=== PATIENT | male | born 1935 | race Caucasian/White ===

== ENCOUNTER 2022-02-07 08:46 | Inpatient (IN) ==
[2022-02-07] MEDS ORDERED: ONDANSETRON 4 MG/2 ML VIAL IV PRN ×2 (09:38→14:40)
[2022-02-07] MEDS ORDERED: METOPROLOL TARTRATE 5 MG/5 ML VIAL IV PRN (09:38)
[2022-02-07] MEDS ORDERED: POLYETHYLENE GLYCOL 3350 17 GM PACKET PO PRN (09:38)
[2022-02-07] MEDS ORDERED: SENNOSIDES 1 TABLET PO PRN (09:38)
[2022-02-07] MEDS ORDERED: IPRATROPIUM/ALBUTEROL 3 ML AMPUL.NEB NEB PRN ×2 (09:38→14:40)
[2022-02-07] MEDS ORDERED: MAGNESIUM SULFATE 2 GM/50 ML BAG IV PRN (09:38)
[2022-02-07] MEDS ORDERED: ACETAMINOPHEN 325 MG TABLET PO PRN (09:38)
[2022-02-07] MEDS ORDERED: POTASSIUM CHLORIDE 40 MEQ in DEXTROSE 5% IN WATER 500 ML IV PRN (09:38)
[2022-02-07] MEDS ORDERED: POTASSIUM CHLORIDE 20 MEQ TABLET PO PRN (09:38)
--- NOTE | 2022-02-07 09:38 | Internal Med History&Physical ---
HPI History of Present Illness Patient information: Note initiated : 02/07/22 at 9:24 am Service Date, if different from initiated Date: [] Patient: Jerome Trotter 86 y/o M admitted on for OBSTRUCTING KIDNEY STONE. Chief Complaint: [] History of present illness: Mr. Trotter is a 86 year old M Presents to [facility] for weakness fever and patient recently had suprapubic catheter placed on January 22. He was also have altered mental status. He is not COVID vaccinated although he was checked in the ED and found to be positive on a screen. Also complained of wet cough for 2 weeks. Patient is a poor historian and most of the history obtained from the chart. He only recalls waking up in the hospital. CXR at outside facility reported as unremarkable except for minimal left effusion Patient was given Zosyn and vancomycin in the ED and 1500 mL of IV fluids. Patient carries a history of atrial fibrillation depression GERD hypertension hypothyroidism obstructive sleep apnea Parkinson's.. He was found to have an obstructing stone on the right felt to be the cause of the likely sepsis. Dr. Sharma was contacted who accepted the patient. Right hydronephrosis. Leukocytosis of 15 mildly low potassium. BUN 29, and creatinine 1.4. Procalcitonin 0.6. Case discussed with the patient's urologist in [place] said not to change the suprapubic catheter for at least 5 weeks from placement date which would put it at February 28. Patient was incidentally found to have COVID on upon testing the ED but did not have any symptoms. Review of Systems: Pertinent positives as above. Denies headache/chills/nausea/vomiting/chest or abdominal pain/cough/dyspnea/diarrhea. Remaining 10 point review of system reviewed negative PFSH PFSH All Active Problems Renal stone (Acute) Hydronephrosis, right (Acute) Suprapubic catheter (Acute) Sepsis (Acute) COVID-19 (Acute) Parkinson disease (Acute) Anticoagulated (Acute) MEDS/ALLERGIES Home Medications and Allergies Home Medications Medication Instructions Recorded Confirmed Type carbidopa 25 mg-levodopa 100 1 tab PO QID 02/07/22 02/07/22 History mg-entacapone 200 mg tablet fludrocortisone 0.1 mg tablet 0.1 mg PO DAILY 02/07/22 02/07/22 History Allergies Allergy/AdvReac Type Severity Reaction Status Date / Time gluten Allergy Verified 02/07/22 11:24 EXAM Constitutional Exam: General: Awake, No acute Distress Eyes/N/T: EOMI, PERRL, Head/Neck: neck supple, normocephalic atraumatic CV: RRR, No murmurs, normal s1/s2 Pulm: rhonchi b/l, no wheezing Abd: soft, nontender, +BS x4, suprapubic catheter Ext: no clubbing/cyanosis, mild b/l LE edema Neuro: no focal deficits, moves all extremities, CN 2-12 grossly intact, symmetrical strength b/l upper/lower, sensations intact b/l upper/lower Skin: warm/dry A/P Narrative A/P Narrative: A: *R hydronephrosis from obstructing UPJ stone: *Sepsis: 2/2 above *DEBO, ?CKD: 2/2 above *Encephalopathy, metabolic: 2/2 above *Suprapubic catheter placed January 22 [place]: *incidental Covid (+): asymptomatic *Parkinson disease: *Chronic Afib: on eliquis *GERD: *?addrenal insufficiency: On Florinef at home, clarify P: -Urology per Dr. Sharma -IV Abx, pending / - -monitor for covid symptoms -cont parkinson's meds -Home medication reconciliation -pt/ot -ppx: SCD (hold home eliquis for urological procedure) / home ppi Time Spent With Patient Time: Total time spent is greater than 50% in coordination of care (as documented) at patient's floor/unit and/or counseling patient: Total time spent with greater than 50% in coordination of care (as documented) at patient's floor/unit and/or counseling patient:: 50 - 70 minutes
[2022-02-07] MEDS ORDERED: 0.9 % SODIUM CHLORIDE 1,000 ML IV ONE (09:39)
[2022-02-07] MEDS ORDERED: PIPERACILLIN SODIUM/TAZOBACTAM 3.375 GM in DEXTROSE 5% IN WATER 50 ML IV SCH (09:45)
--- NOTE | 2022-02-07 12:43 | Urology Consult Note ---
HPI Data of Consult Patient: new to practice Consult date: 02/07/22 Requesting physician: Pavel Matta Consult Narrative Patient Information: Note initiated : 02/07/22 at 12:37 pm Service Date, if different from initiated Date: [] Patient: Jerome Trotter 86 y/o M admitted on 02/07/22 for OBSTRUCTING KIDNEY STONE. Chief Complaint: The patient is an 86-year-old male who was transferred to our hospital from [facility] was positive for COVID and is reported to have urosepsis with a 1 cm right ureteropelvic junction stone with obstruction he had a suprapubic catheter placed approximately 2 weeks ago by his urologist in [place]. It is reported that the urine was purulent today and the patient was not doing well with a white count of 15. The patient's ER doctor called to request transfer to this hospital. I said I would not accept the patient on my service but that if the hospitalist was willing to accept I can try placing a ureteral stent. I also explained to the ER doctor that if we were unable to get a ureteral stent we do not have interventional radiology services available and this is a problem. The ER doctor wished to transfer anyway. I have now had a chance to review the medical records from [place] and these indicate that the patient's urologist also indicated that the patient should be transferred to a center with interventional radiology available. Patient is now here and appears to be alert and oriented. He does not appear to be in significant distress at this time. White blood cell count this morning was 11.3. He received Eliquis yesterday. He has been n.p.o. since February 05. He reports that he is hungry. Chief complaint: Urosepsis with obstructing right renal pelvis stone, COVID- positive Reason for consult: Urosepsis with obstructing right renal stone cc:: CC: Pavel Matta Review of Systems All systems: reviewed and no additional remarkable complaints except as stated Constitutional Constitutional: Present as per HPI, chills, fever(s), lethargy and weakness Genitourinary Genitourinary: as per HPI, flank pain and other (Suprapubic catheter in place draining clear yellow urine) Musculoskeletal Additional comments: Symptoms consistent with Parkinson's Neurological Neurological: Present as per HPI and other (Symptoms consistent with Parkinson's) Psychiatric Psychiatric: Present as per HPI PFSH PFSH All Active Problems Anticoagulated (Acute) Parkinson disease (Acute) COVID-19 (Acute) Sepsis (Acute) Suprapubic catheter (Acute) Hydronephrosis, right (Acute) Renal stone (Acute) MEDS/ALLERGIES Home Medications and Allergies Home Medications Medication Instructions Recorded Confirmed Type carbidopa 25 mg-levodopa 100 1 tab PO QID 02/07/22 02/07/22 History mg-entacapone 200 mg tablet fludrocortisone 0.1 mg tablet 0.1 mg PO DAILY 02/07/22 02/07/22 History Allergies Allergy/AdvReac Type Severity Reaction Status Date / Time gluten Allergy Verified 02/07/22 11:24 Physical Examination General physical appearance General physical exam: well developed, well nourished and chronically ill ENT ENT exam: decreased hearing Head Head exam IM: Present atraumatic, normal inspection and normocephalic Cardiovascular Cardiovascular exam IM: Present normal rate and rhythm Respiratory Respiratory exam: normal expansion and normal respiratory effort Abdomen Abdomen: Present soft and non tender Genitourinary Genitourinary (Male): Present other (Suprapubic catheter in place) Integumentary Integumentary: Present other (Early decubitus ulcers documented by nursing.) Psychiatric Psychiatric: Present oriented to time, oriented to person and oriented to place Results Labs Labs: I have reviewed the patient's outside labs. Imaging CT scan - abdomen: report reviewed and image reviewed CT scan - pelvis: report reviewed and image reviewed Additional studies: I have reviewed the patient's pertinent outside medical records from [place] A/P Assessment and plan (1) Renal stone: Status: Acute (2) Hydronephrosis, right: Status: Acute (3) Suprapubic catheter: Status: Acute (4) Sepsis: Status: Acute (5) COVID-19: Status: Acute (6) Parkinson disease: Status: Acute (7) Anticoagulated: Status: Acute Plan Jerome is an 86-year-old male who was transferred here emergently from [place] due to an obstructing right ureteropelvic junction stone with right hydronephrosis and flank pain. He was reported to be Uracid. On arrival, however, records indicate that his white blood cell count today was 11.36. I have personally reviewed his films which do show what appears to be a right ureteropelvic junction stone with partial obstruction and mild to moderate right hydronephrosis. His suprapubic catheter is draining clear kayce urine. I explained to the ER doctor who wished to transfer the patient the patient would be better off going to a center with both urology and interventional radiology because if we cannot place a ureteral stent in a retrograde fashion the patient will need to have a nephrostomy placed. The ER doctor wish to transfer the p atient here anyway. Upon review of transferring note the ER physician also called the patient's urologist in [place] who said the same thing. The patient should have gone to a center with both urology and interventional radiology evidently there was nowhere else to transfer the patient so we agreed to accept the patient to attempt to place a retrograde right ureteral stent. I spoken with the patient. The patient is also COVID-positive. We discussed going to the operating room for cystoscopy, right retrograde pyelogram, and right ureteral stent placement. The suprapubic catheter will not be touched. I explained to the patient that we will not be treating the stone today as we do not treat stones in the presence infection. We will only be placing a stent that he will need to have the stone treated at a later date. He understands that should we be unable to place the ureteral stent today he will need to be transferred to a center with interventional radiology or possibly [place] to [facility] for placement of right nephrostomy tube with transfer back here. Patient's risks of anesthesia are significantly elevated due to his being positive and due to his age. Reports that he said nothing to eat since February 05. The fact that he received anticoagulation yesterday also raises his risks. Risks include bleeding, infection, damage to the urethra into the bladder, p ostoperative urgency and frequency, postoperative hematuria, need for further treatment or surgery, need to treat the stone at a later date, need to remove the stent within 3 months, risks of heart attack, blood clots, stroke, and . As mentioned above there are also significant risks to the anesthesia that he will discuss separately with the anesthesia provider prior to procedure. The patient understands the above risks and he understands that he was transferred here for this procedure to happen emergently. A signed consent form was obtained. We are taking him to the operating room urgently to place a right ureteral stent as above. The patient will then be readmitted to our hospitalist service for further management. Time Spent With Patient Time: Total time spent is greater than 50% in coordination of care (as documented) at patient's floor/unit and/or counseling patient: Total time spent with greater than 50% in coordination of care (as documented) at patient's floor/unit and/or counseling patient:: Greater than 70 minutes
[2022-02-07] MEDS ORDERED: LIDOCAINE 2% URO-JET 10 ML JEL.PF.APP UR ONE (13:03)
[2022-02-07] MEDS ORDERED: IOVERSOL 20 ML VIAL IV ONE (13:03)
[2022-02-07] MEDS ORDERED: SUCCINYLCHOLINE 20 MG/ML ML IV ONE (13:44)
[2022-02-07] MEDS ORDERED: methylPREDNISolone SOD SUCC 125 MG/2 ML VIAL ONE (13:44)
[2022-02-07] MEDS ORDERED: GLYCOPYRROLATE 0.2 MG/ML VIAL IV ONE (13:44)
[2022-02-07] MEDS ORDERED: LIDOCAINE HCL/PF 100 MG/5 ML SYRINGE IV ONE (13:44)
[2022-02-07] MEDS ORDERED: ONDANSETRON 4 MG/2 ML VIAL ONE (13:44)
[2022-02-07] MEDS ORDERED: DEXAMETHASONE 10 MG/ML VIAL ONE (13:44)
[2022-02-07] MEDS ORDERED: PROPOFOL 200 MG/20 ML VIAL IV ONE (13:44)
[2022-02-07] MEDS: PIPERACILLIN SODIUM/TAZOBACTAM 3.375 GM in DEXTROSE 5% IN WATER 50 ML IV SCH ×2 (13:50→17:13)
--- NOTE | 2022-02-07 14:21 | Operative Note ---
Brief Operative Note Date of procedure: 02/07/22 Pre-op diagnosis: Obstructing right ureteropelvic junction stone, urosepsis, C OVID-19 Post-op diagnosis: same Procedure: Cystoscopy, right retrograde pyelogram, and right ureteral stent placement Grafts/Implants: Yes (6 Spanish by 26 cm right ureteral stent with no string) Anesthesia: GETA Findings: Obstructing right renal pelvis stone non-radiopaque Complications: none Surgeon: Phil Sharma Estimated blood loss (cc): 5 Specimens Removed/Pathology: other (Right renal pelvis urine for culture and sensitivity) Condition: other (Guarded) Disposition: ICU Operative Note Operative Note: After obtaining informed consent from the patient, he was brought to the operating was placed supine on the operating table using COVID precautions. General endotracheal anesthesia was provided. He was repositioned in a dorsolithotomy position was prepped and draped in usual sterile fashion. Attention was directed to the urethral meatus. The penis was seen to have ventral erosion of the urethra distally. This is likely due to a prior indwelling Maya catheter. The patient is suprapubic catheter was clamped. A 21 Spanish cystoscope was passed per urethra into the bladder without difficulty. The bladder was inspected and seen to have edema from the indwelling suprapubic catheter balloon. Both right and left ureteral orifices were identified in the normal anatomic positions. The right ureteral orifice was cannulated using a 0.3 Spanish sensor wire however this would not pass and was therefore removed. I replaced this with an angled tip to 0.38 Spanish Glidewire which I was able to pass into the right ureteral orifice and under fluoroscopic guidance to the ureteropelvic junction I passed an open-ended ureteral catheter over this wire to the UPJ where there was an obstructing stone. I was then able to manipulate the Glidewire alongside the stone and into the right upper pole. I then passed the opening ureteral catheter into the right renal pelvis and remove the wire. Urine was aspirated from the right renal pelvis and was sent for culture and sensitivity. I then passed a 0.38 Spanish sensor wire through the opening ureteral catheter under fluoroscopic guidance into the right upper pole. The open-ended ureteral catheter was removed. A 6 Spanish by 26 cm right ureteral stent with no string was then passed over the wire and under fluoroscopic guidance into the right renal pelvis. The wire was removed leaving a good curl in the right renal pelvis and a good curl within the bladder. The bladder was irrigated and drained. The cystoscope was removed. Lidocaine jelly was placed in urethra in the bladder. The patient was returned to the supine position. The suprapubic catheter was unclamped. The suprapubic dressing was exchanged. The patient was then awakened in the operating room per COVID protocols and will be returned to the ICU for admission to the hospitalist.
[2022-02-07] MEDS ORDERED: NALOXONE HCL 0.4 MG/ML VIAL IV PRN (14:40)
[2022-02-07] MEDS ORDERED: LACTATED RINGERS 250 ML IV PRN (14:40)
[2022-02-07] MEDS ORDERED: fentaNYL 100 MCG/2 ML VIAL IV PRN (14:40)
[2022-02-07] MEDS ORDERED: PROMETHAZINE 25 MG/ML VIAL IV PRN (14:40)
[2022-02-07] MEDS ORDERED: LACTATED RINGERS 1,000 ML IV SCH (14:45)
[2022-02-07] MEDS: CARBIDOPA LEVODOPA ENTACAPONE PO SCH ×3 (15:47→21:14)
[2022-02-07] MEDS: 0.9 % SODIUM CHLORIDE 10 ML SYRINGE IV SCH ×2 (15:47→22:01)
[2022-02-07 16:30] LABS: Appearance,Urine Clear (Clear); Bacteria,Urine FEW /hpf (0); Bilirubin,Urine Negative (Negative); Color,Urine Dark yellow; Culture Indicated,Urine yes; Glucose,Urine (UA) Negative (Negative); Ketones,Urine Trace mg/dL (Negative); Leukocyte Esterase,Urine Large /uL (Negative); Mucus,Urine FEW /hpf; Nitrate,Urine Positive (Negative); Protein,Urine >=300 mg/dL mg/dL (Negative); Urine Blood Large ery/mcL (Negative); Urine RBC 61 /hpf (0-3); Urine Squamous Epithelial Cell 0 /hpf (0-4); Urine Transitional Epi Cells 1 /hpf (0-2); Urine WBC > 182 /hpf (0-4); Urobilinogen,Urine Normal
--- NOTE | 2022-02-07 16:35 | XRay Report ---
CLINICAL INFORMATION: Right UPJ stone COMPARISON: Abdomen and pelvic CT 02/06/2022 FINDINGS: Three digital images from the OR show mild right hydronephrosis with a filling defect at the UPJ presumably representing known stone. Near the catheter, there are 4-5 smaller filling defects which may represent air bubbles. Right ureteral stent was successfully placed IMPRESSION: Placement of right ureteral stent. Total fluoroscopy time 0.7 minutes Interpreted and Authenticated by: Rufus Singh 02/07/22
[2022-02-07] MEDS: CARBIDOPA/LEVODOPA 25/100 TABLET PO SCH ×2 (17:13→21:26)
[2022-02-07] MEDS ORDERED: PYRIDOSTIGMINE 60 MG TABLET PO SCH (21:00)
[2022-02-07] MEDS: NIRMATRELVIR RITONAVIR PO SCH (21:25)
[2022-02-07] MEDS: DOCUSATE SODIUM 100 MG CAPSULE PO SCH (21:26)
[2022-02-07] MEDS ORDERED: 0.9 % SODIUM CHLORIDE 10 ML SYRINGE IV SCH (22:00)
[2022-02-08] MEDS: PIPERACILLIN SODIUM/TAZOBACTAM 3.375 GM in DEXTROSE 5% IN WATER 50 ML IV SCH ×5 (00:22→23:15)
[2022-02-08] MEDS: 0.9 % SODIUM CHLORIDE 10 ML SYRINGE IV SCH ×3 (05:32→20:53)
[2022-02-08 06:29] LABS: Hematocrit 34.4 % (40.1-51.0); Hemoglobin 10.7 g/dL (13.7-17.5); Mean Cell Volume 88.4 fL (80.0-100.0); Mean Corpuscular HGB Conc 31.1 g/dL (31.0-36.0); Mean Platelet Volume 10.2 fL (7.4-10.4); Platelet Count 129 K/mcL (140-440); RBC 3.89 M/mcL (4.63-6.08); Red Cell Distribution Width 17.3 % (11.5-14.5); WBC 7.5 K/mcL (4.5-11.0)
[2022-02-08 06:58] LABS: ALT/SGPT < 5 U/L (<40); AST/SGOT 14 U/L (<40); Albumin 2.6 gm/dL (3.2-5.2); Albumin/Globulin Ratio 0.8 (1.0-2.3); Alkaline Phosphatase 69 U/L (39-117); Bilirubin,Direct < 0.2 mg/dL (0-0.3); Bilirubin,Total 0.5 mg/dL (0.1-1.0); Blood Urea Nitrogen 31 mg/dL (8-23); Calcium 7.7 mg/dL (8.6-10.4); Carbon Dioxide 20 mmol/L (22-30); Chloride 103 mmol/L (96-108); Globulin 3.4 gm/dL (2.2-3.7); Glomerular Filtration Rate 54; Glucose 149 mg/dL (70-105); Lactate Dehydrogenase 146 U/L (135-225); Phosphorous 3.8 mg/dL (2.5-4.5); Triglycerides 86 mg/dL (<150); Uric Acid 5.3 mg/dL (2.5-8.0)
[2022-02-08] MEDS: PANTOPRAZOLE 40 MG TABLET PO SCH (07:25)
[2022-02-08] MEDS: POTASSIUM CHLORIDE 20 MEQ TABLET PO PRN (07:25)
--- NOTE | 2022-02-08 07:36 | Internal Med Progress Note ---
SUBJECTIVE Subjective Patient information: Note initiated : 02/08/22 at 7:32 am Service Date, if different from initiated Date: [] Patient: Jerome Trotter 86 y/o M admitted on 02/07/22 for OBSTRUCTING KIDNEY STONE. Chief Complaint: [] Interval history: History of present illness: Mr. Trotter is a 86 year old M Presents to [facility] for weakness fever and patient recently had suprapubic catheter placed on January 22. He was also have altered mental status. He is not COVID vaccinated although he was checked in the ED and found to be positive on a screen. Also complained of wet cough for 2 weeks. Patient is a poor historian and most of the history obtained from the chart. He only recalls waking up in the hospital. CXR at outside facility reported as unremarkable except for minimal left effusion Patient was given Zosyn and vancomycin in the ED and 1500 mL of IV fluids. Patient carries a history of atrial fibrillation depression GERD hypertension hypothyroidism obstructive sleep apnea Parkinson's.. He was found to have an obstructing stone on the right felt to be the cause of the likely sepsis. Dr. Sharma was contacted who accepted the patient. Right hydronephrosis. Leukocytosis of 15 mildly low potassium. BUN 29, and creatinine 1.4. Procalcitonin 0.6. Case discussed with the patient's urologist in [place] said not to change the suprapubic catheter for at least 5 weeks from placement date which would put it at February 28. Patient was incidentally found to have COVID on upon testing the ED but did not have any symptoms. 02/08 No overnight event or new complaints. Nurse received a call that his blood cu ltures were gram-positive cocci. We will repeat blood cultures and get an echo. Continue Zosyn. says patient does take Florinef and that the neurologist put him on that and that his primary care doctors note is blood pressures run high and that they can be quite labile. Review of Systems: denies headache/fever/chills/nausea/vomiting/chest or abdominal pain/cough/dyspnea/diarrhea. Otherwise see above. Constitutional Vitals: Vital Signs Temp Pulse Resp BP Pulse Ox 98.1 F 72 18 186/98 95 02/08/22 00:01 02/08/22 06:01 02/08/22 06:01 02/08/22 06:01 02/08/22 06:01 Period Temp Pulse Resp BP Sys/Drew Pulse Ox Last 24 Hr 97.4 F-100.3 F 70-89 16-26 107-186/52-98 95-99 Intake and Output 02/07/22 02/08/22 02/08/22 21:59 05:59 13:59 Intake Total 100 250 50 Output Total 225 675 Balance -125 -425 50 Weight 72.711 kg Intake & Output: Intake & Output 02/07/22 02/08/22 02/08/22 21:59 05:59 13:59 Intake Total 100 250 50 Output Total 225 675 Balance -125 -425 50 Weight 72.711 kg Intake: IV 100 50 50 Zosyn 3.375 gm In Dextrose 5% 100 50 50 in Water 50 ml @ 100 mls/hr IV Q6H [facility] Rx#:[id number] Oral 200 Output: Urine Catheter Amount 225 675 Other: Urine Appearance Clear Sediment Urine Color Bright Yellow Dark Cherry Urine Odor Strong Normal Exam: General: Awake, No acute Distress Eyes/N/T: EOMI, , Head/Neck: neck supple, CV: RRR, No murmurs, Pulm: rhonchi b/l, no wheezing Abd: soft, nontender, +BS x4, suprapubic catheter Ext: no clubbing/cyanosis, mild b/l LE edema Neuro: no focal deficits, moves all extremities, Skin: warm/dry OBJ DATA Labs CBC & Chem 7: 02/08/22 05:25 02/08/22 05:25 Labs: Abnormal Lab Results 02/08/22 02/08/22 02/08/22 05:25 05:25 05:25 RBC 3.89 L Hgb 10.7 L Hct 34.4 L RDW 17.3 H Plt Count 129 L Potassium 3.1 L Carbon Dioxide 20 L BUN 31 H Glucose 149 H Calcium 7.7 L Albumin 2.6 L Albumin/Globulin Ratio 0.8 L Procalcitonin 1.73 H Urine Protein Urine Ketones Urine Occult Blood Urine Nitrate Ur Leukocyte Esterase Urine RBC Urine WBC Urine Bacteria Urine Mucus 02/07/22 13:25 RBC Hgb Hct RDW Plt Count Potassium Carbon Dioxide BUN Glucose Calcium Albumin Albumin/Globulin Ratio Procalcitonin Urine Protein >=300 mg/dl A Urine Ketones Trace A Urine Occult Blood Large A Urine Nitrate Positive A Ur Leukocyte Esterase Large A Urine RBC 61 H Urine WBC > 182 H Urine Bacteria Few A Urine Mucus Few A Meds: Medications Acetaminophen (Acetaminophen 325 Mg Tablet) 650 mg PO Q6HP PRN; Protocol PRN Reason: Per Pain Protocol/Fever > 101 Albuterol/Ipratropium (Ipratropium/Albuterol 3 Ml Ampul.Neb) 3 ml NEB Q4HP PRN PRN Reason: Shortness Of Breath Docusate Sodium (Docusate Sodium 100 Mg Capsule) 100 mg PO BID [facility] Last Admin: 02/07/22 21:26 Dose: 100 mg Documented by: Fludrocortisone Acetate (Fludrocortisone 0.1 Mg Tablet) 0.1 mg PO DAILY [facility] Potassium Chloride 40 meq/ (Dextrose) 520 mls @ 130 mls/hr IV UD PRN PRN Reason: Potassium < 3 Magnesium Sulfate (Magnesium Sulfate) 2 gm in 50 mls @ 50 mls/hr IV UD PRN PRN Reason: Magnesium </= 1.6 Piperacillin Sod/Tazobactam (Sod 3.375 gm/ Dextrose) 50 mls @ 100 mls/hr IV Q6H [facility]; Protocol Last Infusion: 02/08/22 06:16 Dose: Infused Documented by: Metoprolol Tartrate (Metoprolol Tartrate 5 Mg/5 Ml Vial) 5 mg IV Q2HP PRN PRN Reason: Tachyarrhythmias HR>110 Ondansetron HCl (Ondansetron 4 Mg/2 Ml Vial) 4 mg IV Q4HP PRN PRN Reason: Nausea And Vomiting Pantoprazole Sodium (Pantoprazole 40 Mg Tablet) 40 mg PO QAMAC [facility] Last Admin: 02/08/22 07:25 Dose: 40 mg Documented by: Carbidopa-Levodopa- Entacapone 25-100- 200 Mg 1 dose PO QID [facility] Last Admin: 02/07/22 21:14 Dose: Not Given Documented by: Mirabegron 25 Mg Tablet Extended Release 24 Hr 25 dose PO QDAY [facility] Nirmatrelvir- Ritonavir [Paxlovid (Eua)] 150-100 Mg 1 dose PO BID [facility] Last Admin: 02/07/22 21:25 Dose: 1 dose Documented by: Pyridostigmine 60 Mg (Tablet) 0.5 dose PO TID [facility] Last Admin: 02/07/22 21:14 Dose: Not Given Documented by: Vitamin K2 45 Mcg (Capsule) 1 dose PO QDAY [facility] Polyethylene Glycol (Polyethylene Glycol 3350 17 Gm Packet) 17 gm PO DAILYP PRN PRN Reason: Constipation Potassium Chloride (Potassium Chloride 20 Meq Tablet) 40 meq PO UD PRN PRN Reason: Potssium is 3-3.5 Last Admin: 02/08/22 07:25 Dose: 40 meq Documented by: Potassium Chloride (Potassium Chloride 20 Meq Tablet) 40 meq PO UD PRN PRN Reason: Potassium < 3 Senna (Sennosides 1 Tablet) 2 tab PO DAILYP PRN PRN Reason: Constipation Sodium Chloride (0.9 % Sodium Chloride 10 Ml Syringe) 10 ml IV Q8 [facility] Last Admin: 02/08/22 05:32 Dose: Not Given Documented by: A/P Narrative A/P Narrative: A: *R hydronephrosis from obstructing UPJ stone: s/p cystoscopy w/stent (02/07) *Sepsis: 2/2 above -Leukocytosis improving *Bacteremia(GPC) @outside facility: *DEBO on likely CKD: 2/2 above -Creatinine improving *Encephalopathy, metabolic: 2/2 above *Suprapubic catheter placed January 22 [place]: *incidental Covid (+): asymptomatic *Hypokalemia: *Parkinson disease: *Chronic Afib: on eliquis *GERD: P: -Urology per Dr. Sharma -[facility], pending UC/BC -echo -monitor for covid symptoms -cont parkinson's meds -cont home mitch, prescribed by his neurologist -pt/ot -ppx: Eliquis / home ppi Time Spent With Patient Time: Total time spent is greater than 50% in coordination of care (as documented) at patient's floor/unit and/or counseling patient: Total time spent with greater than 50% in coordination of care (as documented) at patient's floor/unit and/or counseling patient:: 25 - 35 minutes QUALITY VTE Deep Vein Thrombosis/Pulmonary Embolism Present on Admission: No
[2022-02-08 08:14] LABS: Anisocytosis 2+ (None Seen); Band Neutrophils % 4 % (0-10); Lymphocytes % 6 % (15-49); Monocytes % (Manual) 2 % (1-12); Ovalocytes FEW (None Seen); Platelet Estimate DECREASED (Normal); Poikilocytosis 1+ (None Seen); RBC Fragments FEW (None Seen); RBC Morphology ABNORMAL (Normal); Segmented Neutrophils % 88 % (38-78)
[2022-02-08] MEDS ORDERED: MIRABEGRON 25 MG PO SCH (09:00)
[2022-02-08] MEDS: DOCUSATE SODIUM 100 MG CAPSULE PO SCH ×2 (09:15→20:49)
[2022-02-08] MEDS: FLUDROCORTISONE 0.1 MG TABLET PO SCH (09:15)
[2022-02-08] MEDS: APIXABAN 5 MG TABLET PO SCH ×2 (09:15→20:49)
[2022-02-08] MEDS: CARBIDOPA LEVODOPA ENTACAPONE PO SCH ×4 (09:21→20:50)
[2022-02-08] MEDS: PYRIDOSTIGMINE 60 MG TABLET PO SCH ×3 (09:22→20:50)
[2022-02-08] MEDS: NIRMATRELVIR RITONAVIR PO SCH ×2 (09:23→20:50)
[2022-02-08] MEDS: VITAMIN K2 PO SCH (09:23)
--- NOTE | 2022-02-08 10:02 | Urology Progress Note ---
SUBJECTIVE Subjective Patient information: Note initiated : 02/08/22 at 9:58 am Service Date, if different from initiated Date: [] Patient: Jerome Trotter 86 y/o M admitted on 02/07/22 for OBSTRUCTING KIDNEY STONE. Chief Complaint: [] Principal diagnosis: Right renal stone with urosepsis, COVID-19 Interval history: The patient is postoperative day #1 status postplacement of a right ureteral stent due to an obstructing right ureteropelvic junction stone. He also was recently diagnosed with COVID-19. Since yesterday we obtained blood cultures from [facility] which revealed urine culture positive for Klebsiella pneumonia and blood cultures positive for gram-positive rods. He is doing much better today. He is alert and eating and drinking. Constitutional Vitals: Vital Signs Temp Pulse Resp BP Pulse Ox 98.7 F 73 19 191/98 96 02/08/22 08:01 02/08/22 08:01 02/08/22 08:01 02/08/22 08:01 02/08/22 08:01 Period Temp Pulse Resp BP Sys/Drew Pulse Ox Last 24 Hr 97.4 F-100.3 F 70-89 16-26 107-191/52-98 95-99 Intake and Output 02/07/22 02/08/22 02/08/22 21:59 05:59 13:59 Intake Total 923 094 2586 Output Total 225 675 150 Balance -125 -425 1020 Weight 72.711 kg Intake & Output: Intake & Output 02/07/22 02/08/22 02/08/22 21:59 05:59 13:59 Intake Total 975 178 6703 Output Total 225 675 150 Balance -125 -425 1020 Weight 72.711 kg Intake: IV 530 50 6058 Sodium Chloride 0.9% 1,000 ml @ 1000 75 mls/hr IV .[id number] ONE Rx#: [id number] Zosyn 3.375 gm In Dextrose 5% 100 50 50 in Water 50 ml @ 100 mls/hr IV Q6H [facility] Rx#:[id number] Oral 200 120 Output: Urine Catheter Amount 225 675 150 Other: Meal Breakfast Percent of Meal Consumed 25% Feeding Ability Total Assistance Urine Appearance Clear Sediment Clear Urine Color Bright Yellow Dark Cherry Bright Yellow Urine Odor Strong Normal Normal General appearance: average body habitus, cooperative and no acute distress Head Head exam: Present atraumatic, normal inspection and normocephalic Expanded Exam Urine Appearance: Clear Urine Color: Dark Yellow A/P Assessment and plan (1) Suprapubic catheter: Status: Acute (2) Renal stone: Status: Acute (3) Sepsis: Status: Acute Narrative A/P Narrative: Jerome is a 86-year-old male with a history of an obstructing right ur eteropelvic junction stone with pain, hydronephrosis and urosepsis. He was also recently diagnosed with COVID-19. He is postoperative day #1 status postplacement of a right ureteral stent. He is doing much better this morning. At this point barring any further urologic issues I will sign off. The suprapubic tube remains in place and should not be changed for at least another 2 weeks. It is to gravity drainage and the urine is clear dark yellow. His stone remains with a stent in place. The stone will need to be treated and the stent eventually removed. This should be done within the next month or so. This may be done by either his urologist in [place] or by me at their choosing. Please call if any other issues arise. Time Spent With Patient Time: Total time spent is greater than 50% in coordination of care (as documented) at patient's floor/unit and/or counseling patient: Total time spent with greater than 50% in coordination of care (as documented) at patient's floor/unit and/or counseling patient:: less than 15 minutes
[2022-02-09] MEDS: LABETALOL 5 MG/ML ML IV PRN ×2 (04:02→16:08)
[2022-02-09] MEDS: PIPERACILLIN SODIUM/TAZOBACTAM 3.375 GM in DEXTROSE 5% IN WATER 50 ML IV SCH ×4 (05:38→23:11)
[2022-02-09] MEDS: 0.9 % SODIUM CHLORIDE 10 ML SYRINGE IV SCH ×3 (05:39→21:15)
[2022-02-09 06:29] LABS: Blood Urea Nitrogen 38 mg/dL (8-23); Calcium 7.8 mg/dL (8.6-10.4); Carbon Dioxide 21 mmol/L (22-30); Chloride 104 mmol/L (96-108); Glomerular Filtration Rate 60; Glucose 197 mg/dL (70-105)
[2022-02-09] MEDS ORDERED: POTASSIUM CHLORIDE 20 MEQ TABLET PO ONE (07:47)
--- NOTE | 2022-02-09 07:50 | Internal Med Progress Note ---
SUBJECTIVE Subjective Patient information: Note initiated : 02/09/22 at 7:47 am Service Date, if different from initiated Date: [] Patient: Jerome Trotter a 86 y/o M admitted on 02/07/22 for OBSTRUCTING KIDNEY STONE. Chief Complaint: [] Principal diagnosis: Right renal stone with urosepsis, COVID-19 Interval history: History of present illness: Mr. Trotter is a 86 year old M Presents to [facility] for weakness fever and patient recently had suprapubic catheter placed on January 22. He was also have altered mental status. He is not COVID vaccinated although he was checked in the ED and found to be positive on a screen. Also complained of wet cough for 2 weeks. Patient is a poor historian and most of the history obtained from the chart. He only recalls waking up in the hospital. CXR at outside facility reported as unremarkable except for minimal left effusion Patient was given Zosyn and vancomycin in the ED and 1500 mL of IV fluids. Patient carries a history of atrial fibrillation depression GERD hypertension hypothyroidism obstructive sleep apnea Parkinson's.. He was found to have an obstructing stone on the right felt to be the cause of the likely sepsis. Dr. Sharma was contacted who accepted the patient. Right hydronephrosis. Leukocytosis of 15 mildly low potassium. BUN 29, and creatinine 1.4. Procalcitonin 0.6. Case discussed with the patient's urologist in [place] said not to change the suprapubic catheter for at least 5 weeks from placement date which would put it at February 28. Patient was incidentally found to have COVID on upon testing the ED but did not have any symptoms. 02/08 No overnight event or new complaints. Nurse received a call that his blood cultures were gram-positive cocci. We will repeat blood cultures and get an echo. Continue Zosyn. says patient does take Florinef and that the neurologist put him on that and that his primary care doctors note is blood pressures run high and that they can be quite labile. 02/09 No overnight events. Patient states he feels little bit better. I was told by nursing that the outside facility stated gram-positive cocci in his blood. We are awaiting that report to confirm. Follow-up blood cultures pending. Mild hypokalemia this morning. Calcitonin improving. Review of Systems: denies headache/fever/chills/nausea/vomiting/chest or abdominal pain/cough/dyspnea/diarrhea. Otherwise see above. Constitutional Vitals: Vital Signs Temp Pulse Resp BP Pulse Ox 97.5 F 62 15 176/82 97 02/09/22 04:01 02/09/22 05:01 02/09/22 05:01 02/09/22 05:01 02/09/22 05:01 Period Temp Pulse Resp BP Sys/Drew Pulse Ox Last 24 Hr 97.2 F-98.7 F 62-81 14-20 168-202/82-115 95-98 Intake and Output 02/08/22 02/09/22 02/09/22 21:59 05:59 13:59 Intake Total 810 450 50 Output Total 350 275 Balance 460 175 50 Weight 74.707 kg Intake & Output: Intake & Output 02/08/22 02/09/22 02/09/22 21:59 05:59 13:59 Intake Total 810 450 50 Output Total 350 275 Balance 460 175 50 Weight 74.707 kg Intake: IV 50 50 50 Zosyn 3.375 gm In Dextrose 5% 50 50 50 in Water 50 ml @ 100 mls/hr IV Q6H [facility] Rx#:[id number] Oral 760 400 Output: Urine Catheter Amount 350 275 Other: Meal applesauce w/ meds Percent of Meal Consumed 50% Feeding Ability Independent Nourishment/Supplement name apple juice Urine Appearance Sediment Sediment Urine Color Dark Cherry Dark Yellow Urine Odor Normal Exam: General: Awake, No acute Distress Eyes/N/T: EOMI, , Head/Neck: neck supple, CV: RRR, No murmurs, Pulm: mild rhonchi, no wheezing Abd: soft, nontender, +BS x4, suprapubic catheter Ext: no clubbing/cyanosis, mild b/l LE edema Neuro: no focal deficits, moves all extremities, Skin: warm/dry OBJ DATA Labs CBC & Chem 7: 02/08/22 05:25 02/09/22 05:16 Labs: Abnormal Lab Results 02/09/22 02/09/22 02/08/22 05:16 05:16 05:25 RBC 3.89 L Hgb 10.7 L Hct 34.4 L RDW 17.3 H Plt Count 129 L Seg Neutrophils % 88 H Lymphocytes % 6 L Platelet Estimate Decreased A RBC Morphology Abnormal A Poikilocytosis 1+ A Anisocytosis 2+ A Ovalocytes Few A RBC Fragments Few A Potassium 3.1 L Carbon Dioxide 21 L BUN 38 H Glucose 197 H Calcium 7.8 L Albumin Albumin/Globulin Ratio Procalcitonin 1.20 H Urine Protein Urine Ketones Urine Occult Blood Urine Nitrate Ur Leukocyte Esterase Urine RBC Urine WBC Urine Bacteria Urine Mucus 02/08/22 02/08/22 02/07/22 05:25 05:25 13:25 RBC Hgb Hct RDW Plt Count Seg Neutrophils % Lymphocytes % Platelet Estimate RBC Morphology Poikilocytosis Anisocytosis Ovalocytes RBC Fragments Potassium 3.1 L Carbon Dioxide 20 L BUN 31 H Glucose 149 H Calcium 7.7 L Albumin 2.6 L Albumin/Globulin Ratio 0.8 L Procalcitonin 1.73 H Urine Protein >=300 mg/dl A Urine Ketones Trace A Urine Occult Blood Large A Urine Nitrate Positive A Ur Leukocyte Esterase Large A Urine RBC 61 H Urine WBC > 182 H Urine Bacteria Few A Urine Mucus Few A Meds: Medications Acetaminophen (Acetaminophen 325 Mg Tablet) 650 mg PO Q6HP PRN; Protocol PRN Reason: Per Pain Protocol/Fever > 101 Albuterol/Ipratropium (Ipratropium/Albuterol 3 Ml Ampul.Neb) 3 ml NEB Q4HP PRN PRN Reason: Shortness Of Breath Apixaban (Apixaban 5 Mg Tablet) 5 mg PO BID [facility] Last Admin: 02/08/22 20:49 Dose: 5 mg Documented by: Docusate Sodium (Docusate Sodium 100 Mg Capsule) 100 mg PO BID [facility] Last Admin: 02/08/22 20:49 Dose: 100 mg Documented by: Fludrocortisone Acetate (Fludrocortisone 0.1 Mg Tablet) 0.1 mg PO DAILY [facility] Last Admin: 02/08/22 09:15 Dose: 0.1 mg Documented by: Potassium Chloride 40 meq/ (Dextrose) 520 mls @ 130 mls/hr IV UD PRN PRN Reason: Potassium < 3 Magnesium Sulfate (Magnesium Sulfate) 2 gm in 50 mls @ 50 mls/hr IV UD PRN PRN Reason: Magnesium </= 1.6 Piperacillin Sod/Tazobactam (Sod 3.375 gm/ Dextrose) 50 mls @ 100 mls/hr IV Q6H [facility]; Protocol Last Infusion: 02/09/22 06:08 Dose: Infused Documented by: Labetalol HCl (Labetalol 5 Mg/Ml Ml) 0 mg IV Q2HP PRN PRN Reason: Hypertension Last Admin: 02/09/22 04:02 Dose: 20 mg Documented by: Metoprolol Tartrate (Metoprolol Tartrate 5 Mg/5 Ml Vial) 5 mg IV Q2HP PRN PRN Reason: Tachyarrhythmias HR>110 Ondansetron HCl (Ondansetron 4 Mg/2 Ml Vial) 4 mg IV Q4HP PRN PRN Reason: Nausea And Vomiting Pantoprazole Sodium (Pantoprazole 40 Mg Tablet) 40 mg PO QAMAC [facility] Last Admin: 02/08/22 07:25 Dose: 40 mg Documented by: Carbidopa-Levodopa- Entacapone 25-100- 200 Mg 1 dose PO QID [facility] Last Admin: 02/08/22 20:50 Dose: 1 dose Documented by: Nirmatrelvir- Ritonavir [Paxlovid (Eua)] 150-100 Mg 1 dose PO BID [facility] Last Admin: 02/08/22 20:50 Dose: 1 dose Documented by: Vitamin K2 45 Mcg (Capsule) 1 dose PO QDAY [facility] Last Admin: 02/08/22 09:23 Dose: Not Given Documented by: Mirabegron 25 Mg Tablet Extended Release 24 Hr 1 dose PO QDAY [facility] Polyethylene Glycol (Polyethylene Glycol 3350 17 Gm Packet) 17 gm PO DAILYP PRN PRN Reason: Constipation Potassium Chloride (Potassium Chloride 20 Meq Tablet) 40 meq PO UD PRN PRN Reason: Potssium is 3-3.5 Last Admin: 02/08/22 07:25 Dose: 40 meq Documented by: Potassium Chloride (Potassium Chloride 20 Meq Tablet) 40 meq PO UD PRN PRN Reason: Potassium < 3 Pyridostigmine [place] (Pyridostigmine 60 Mg Tablet) 30 mg PO TID [facility] Last Admin: 02/08/22 20:50 Dose: 30 mg Documented by: Senna (Sennosides 1 Tablet) 2 tab PO DAILYP PRN PRN Reason: Constipation Sodium Chloride (0.9 % Sodium Chloride 10 Ml Syringe) 10 ml IV Q8 [facility] Last Admin: 02/09/22 05:39 Dose: 10 ml Documented by: A/P Narrative A/P Narrative: A: *R hydronephrosis from obstructing UPJ stone: s/p cystoscopy w/stent (02/07) *Sepsis: 2/2 above -Leukocytosis resolved *Bacteremia(GPC) @outside facility: awaiting report *DEBO on likely CKD: 2/2 above -Creatinine improved *Encephalopathy, metabolic: 2/2 above, improved *Suprapubic catheter placed January 22 [place]: *incidental Covid (+): asymptomatic *Hypokalemia: replace *Parkinson disease: *Chronic Afib: on eliquis *GERD: P: -Urology per Dr. Sharma -DEE Abx, pending /BC -echo -monitor for covid symptoms -cont parkinson's meds -cont home florinef, prescribed by his neurologist -pt/ot -ppx: Eliquis / home ppi Time Spent With Patient Time: Total time spent is greater than 50% in coordination of care (as documented) at patient's floor/unit and/or counseling patient: Total time spent with greater than 50% in coordination of care (as documented) at patient's floor/unit and/or counseling patient:: 25 - 35 minutes QUALITY VTE Deep Vein Thrombosis/Pulmonary Embolism Present on Admission: No
[2022-02-09] MEDS: CARBIDOPA LEVODOPA ENTACAPONE PO SCH ×5 (07:51→21:15)
[2022-02-09] MEDS: PYRIDOSTIGMINE 60 MG TABLET PO SCH ×3 (07:51→21:15)
[2022-02-09] MEDS: APIXABAN 5 MG TABLET PO SCH ×2 (07:52→21:14)
[2022-02-09] MEDS: PANTOPRAZOLE 40 MG TABLET PO SCH (07:52)
[2022-02-09] MEDS: FLUDROCORTISONE 0.1 MG TABLET PO SCH (07:52)
[2022-02-09] MEDS: NIRMATRELVIR RITONAVIR PO SCH ×2 (07:52→21:15)
[2022-02-09] MEDS: DOCUSATE SODIUM 100 MG CAPSULE PO SCH ×2 (07:52→19:45)
[2022-02-09] MEDS: VITAMIN K2 PO SCH (09:11)
[2022-02-09] MEDS: MIRABEGRON 25 MG PO SCH (09:11)
[2022-02-09] MEDS ORDERED: VANCOMYCIN PER PHARMACY IV SCH (09:54)
--- NOTE | 2022-02-09 10:34 | Discharge Summary ---
Discharge Provider Provider IMPORTANT FOLLOW-UP INFORMATION FOR PCP: Patient information: Note initiated : 02/09/22 at 10:32 am Service Date, if different from initiated Date: [] Patient: Jerome Trotter 86 y/o M admitted on 02/07/22 for OBSTRUCTING KIDNEY STONE. Chief Complaint: [] Date of admission: 02/07/22 12:23 Discharge date: 02/10/22 Consults: 02/07/22 09:40 Consult to Physician [CONS] Routine Comment: Consulting Provider: Phil Sharma Reason For Exam: Physician to Consult COURSE Hospital Course Hospital course: History of present illness: Mr. Trotter is a 86 year old M Presents to [facility] for weakness fever and patient recently had suprapubic catheter placed on January 22. He was also have altered mental status. He is not COVID vaccinated although he was checked in the ED and found to be positive on a screen. Also complained of wet cough for 2 weeks. Patient is a poor historian and most of the history obtained from the chart. He only recalls waking up in the hospital. CXR at outside facility reported as unremarkable except for minimal left effusion Patient was given Zosyn and vancomycin in the ED and 1500 mL of IV fluids. Patient carries a history of atrial fibrillation depression GERD hypertension hypothyroidism obstructive sleep apnea Parkinson's.. He was found to have an obstructing stone on the right felt to be the cause of the likely sepsis. Dr. Sharma was contacted who accepted the patient. Right hydronephrosis. Leukocytosis of 15 mildly low potassium. BUN 29, and creatinine 1.4. Procalcitonin 0.6. Case discussed with the patient's urologist in [place] said not to change the suprapubic catheter for at least 5 weeks from placement date which would put it at February 28. Patient was incidentally found to have COVID on upon testing the ED but did not have any symptoms. 02/08 No overnight event or new complaints. Nurse received a call that his blood cultures were gram-positive cocci. We will repeat blood cultures and get an echo. Continue Zosyn. says patient does take Florinef and that the neurologist put him on that and that his primary care doctors note is blood pressures run high and that they can be quite labile. 02/09 No overnight events. Patient states he feels little bit better. I was told by nursing that the outside facility stated gram-positive cocci in his blood. We are awaiting that report to confirm. Follow-up blood cultures pending. Mild hypokalemia this morning. Calcitonin improving. 02/10 blood cx from outside facility showing Klebsiella pne pansensitive. Gram stains also reported as GPC anaerobe but nothing yet on identification or if anything even grew. currently on vanc/zosyn, deescalate to augmentin for total course of 14 days No overnight event or new complaints. A: *R hydronephrosis from obstructing UPJ stone: s/p cystoscopy w/stent (02/07) *Sepsis: 2/2 above. resolved *Bacteremia(Klebsiella pna, ?anerobic gpc GPC) @outside facility: awaiting final report -echo no vegetations *DEBO on likely CKD: 2/2 above, resolved *Encephalopathy, metabolic: 2/2 above, improved *Suprapubic catheter placed January 22 [place]: *incidental Covid (+): asymptomatic, paxlovid prescribed in ED, finish course *Hypokalemia: replace prn *Parkinson disease: *Chronic Afib: on eliquis *GERD: P: -f/u with urologist in [place] -blood cx from outside facility showing Klebsiella pne pansensitive. Gram stains also reported as GPC anaerobe but nothing yet on identification or if anything even grew. -deescalate to augmentin for total course of 14-days to finish February 21 Discharge diagnosis: Right hydronephrosis from obstructing stone sepsis bacteremia acute kidney Secondary discharge diagnosis: Chronic kidney disease Encephalopathy incidental COVID-positive hypokalemia Parkinson's chronic A. fib GERD Time Spent with Patient Time attestation: Total time spent providing and/or coordinating discharge services: Time spent: Greater than 30 minutes EXAM Constitutional Vitals: Temp Pulse Resp BP Pulse Ox 98.8 F 72 18 159/88 97 02/09/22 08:21 02/09/22 06:01 02/09/22 08:21 02/09/22 08:21 02/09/22 06:01 Discharge Data Data Completed and Pending Labs on day of discharge: Labs from last 24 hours 02/09/22 02/09/22 05:16 05:16 Sodium 138 Potassium 3.1 L Chloride 104 Carbon Dioxide 21 L Anion Gap 13.0 BUN 38 H Creatinine 1.1 GFR Calculation 60 Glucose 197 H Calcium 7.8 L Procalcitonin 1.20 H Preliminary micro results at discharge 02/08/22 09:34 Blood Culture - Preliminary Blood 02/08/22 09:25 Blood Culture - Preliminary Blood 02/07/22 13:25 Urine Culture - Preliminary Urine - Suprapubic 02/07/22 14:20 Anaerobic Culture - Preliminary Urine,Ureter - Right Discharge Plan Patient/Caregiver Discharge Instructions Activity: increase activity as tolerated Diet: Regular Diet Activity Restrictions/Additional Instructions: Follow-up with your PCP in 3 to 7 days. Follow-up with your urologist in 3 to 10 days. Diet: Add Ensure 8oz drink twice daily Prescriptions: New amoxicillin-pot clavulanate 875-125 mg tablet 1 tab PO BID Qty: 21 0RF Continued fludrocortisone 0.1 mg Tablet 0.1 mg PO DAILY 0RF [id number]-[id number] 25-100-200 mg Tablet 1 tab PO QID 0RF Rx Instructions: Takes at 0500, 0900, 1300, 1700 pyridostigmine bromide [Mestinon] 60 mg Tablet 30 mg PO TID 0RF magnesium 200 mg Tablet 400 mg PO BID 0RF mirabegron 25 mg Tablet Extended Release 24 Hr 25 mg PO QDAY 0RF Eliquis 5 mg tablet 1 tab PO BID 0RF vitamin K2 45 mcg Capsule 45 mcg PO QDAY 0RF calcium carbonate-vitamin D2 600 mg calcium- 200 unit Tablet 1 tab PO DAILY 0RF cholecalciferol (vitamin D3) [Dialyvite Vitamin D] 125 mcg (5,000 unit) Capsule 1,000 unit PO QDAY 0RF Paxlovid (EUA) 150-100 mg Tablet 1 tab PO BID 0RF Rx Instructions: Renal dosing is 100mg Ritonavir + 150mg nirmatrelvir BID Follow Up Plan Patient Disposition: Xfer SNF Prognosis: Fair Rehab Potential: Fair I certify that the patient requires SNF services: Yes Overall status at discharge: patient is progressing back to baseline Discharge Orders: Discharge Order (Routine); Ordered 02/10/22 Ordered By: Pavel THOMAS VTE Deep Vein Thrombosis/Pulmonary Embolism Present on Admission: No
[2022-02-09] MEDS ORDERED: VANCOMYCIN 1,250 MG in 0.9 % SODIUM CHLORIDE 500 ML IV SCH (11:00)
--- NOTE | 2022-02-09 13:43 | EKG ---
[facility] Test Date: 2022-02-07 Pat Name: Jerome Trotter Department: ICU Room: 120B Gender: Male Field Service Representative: : 1935 Requested By: Pavel Matta Order Number: [id number] Reading MD: Rufus Caballero M.D. Measurements Intervals Palm Rate: 83 P: 1 VA: 189 QRS: 3 QRSD: 102 T: 5 QT: 441 QTc: 519 Interpretive Statements Sinus rhythm Prolonged QT interval Electronically Signed On 02-09-2022 13:43:23 PDT by Rufus Caballero M.D. /store/[id number]
[2022-02-10] MEDS: 0.9 % SODIUM CHLORIDE 10 ML SYRINGE IV SCH ×3 (05:12→12:46)
[2022-02-10] MEDS: PIPERACILLIN SODIUM/TAZOBACTAM 3.375 GM in DEXTROSE 5% IN WATER 50 ML IV SCH ×2 (05:12→11:42)
[2022-02-10] MEDS: LABETALOL 5 MG/ML ML IV PRN (05:44)
[2022-02-10 06:07] LABS: Blood Urea Nitrogen 35 mg/dL (8-23); Carbon Dioxide 25 mmol/L (22-30); Chloride 99 mmol/L (96-108); Glomerular Filtration Rate 60; Glucose 159 mg/dL (70-105)
[2022-02-10] MEDS: PANTOPRAZOLE 40 MG TABLET PO SCH (07:03)
[2022-02-10] MEDS: POTASSIUM CHLORIDE 20 MEQ TABLET PO PRN (07:03)
[2022-02-10] MEDS ORDERED: POTASSIUM CHLORIDE 20 MEQ in DEXTROSE 5% IN WATER 250 ML IV ONE ×2 (07:06→07:25)
[2022-02-10] MEDS ORDERED: POTASSIUM CHLORIDE 20 MEQ TABLET PO ONE (07:06)
[2022-02-10] MEDS: DOCUSATE SODIUM 100 MG CAPSULE PO SCH (08:02)
[2022-02-10] MEDS: APIXABAN 5 MG TABLET PO SCH (08:02)
[2022-02-10] MEDS: FLUDROCORTISONE 0.1 MG TABLET PO SCH (08:02)
[2022-02-10] MEDS: PYRIDOSTIGMINE 60 MG TABLET PO SCH (08:03)
[2022-02-10] MEDS: CARBIDOPA LEVODOPA ENTACAPONE PO SCH ×2 (08:03→11:43)
[2022-02-10] MEDS: MIRABEGRON 25 MG PO SCH (08:04)
[2022-02-10] MEDS: VITAMIN K2 PO SCH (08:04)
[2022-02-10] MEDS: NIRMATRELVIR RITONAVIR PO SCH (08:04)
--- NOTE | 2022-02-10 08:44 | Internal Med Progress Note ---
SUBJECTIVE Subjective Patient information: Note initiated : 02/10/22 at 8:38 am Service Date, if different from initiated Date: [] Patient: Jerome Trotter 86 y/o M admitted on 02/07/22 for OBSTRUCTING KIDNEY STONE. Chief Complaint: [] Principal diagnosis: Right renal stone with urosepsis, COVID-19 Constitutional Vitals: Vital Signs Temp Pulse Resp BP Pulse Ox 97.6 F 71 22 213/100 95 02/10/22 04:01 02/09/22 16:21 02/10/22 06:00 02/10/22 05:55 02/09/22 20:00 Period Temp Pulse Resp BP Sys/Drew Pulse Ox Last 24 Hr 97.6 F-98.2 F 67-72 13-25 144-217/76-107 95-99 Intake and Output 02/09/22 02/10/22 02/10/22 21:59 05:59 13:59 Intake Total 50 470 50 Output Total 1650 Balance 50 -1180 50 Weight 74.162 kg Intake & Output: Intake & Output 02/09/22 02/10/22 02/10/22 21:59 05:59 13:59 Intake Total 50 470 50 Output Total 1650 Balance 50 -1180 50 Weight 74.162 kg Intake: IV 50 50 50 Zosyn 3.375 gm In Dextrose 5% 50 50 50 in Water 50 ml @ 100 mls/hr IV Q6H [facility] Rx#:[id number] Oral 420 Output: Urine Catheter Amount 1650 Other: Urine Appearance Clear Urine Color Light Cherry Exam: General: Awake, No acute Distress Eyes/N/T: EOMI, , Head/Neck: neck supple, CV: RRR, No murmurs, Pulm: mild rhonchi, no wheezing Abd: soft, nontender, +BS x4, suprapubic catheter Ext: no clubbing/cyanosis, mild b/l LE edema Neuro: no focal deficits, moves all extremities, Skin: warm/dry OBJ DATA Labs CBC & Chem 7: 02/08/22 05:25 02/10/22 05:08 Labs: Abnormal Lab Results 02/10/22 02/09/22 02/09/22 05:08 05:16 05:16 RBC Hgb Hct RDW Plt Count Seg Neutrophils % Lymphocytes % Platelet Estimate RBC Morphology Poikilocytosis Anisocytosis Ovalocytes RBC Fragments Potassium 3.1 L 3.1 L Carbon Dioxide 21 L BUN 35 H 38 H Glucose 159 H 197 H Calcium 8.0 L 7.8 L Albumin Albumin/Globulin Ratio Procalcitonin 1.20 H Urine Protein Urine Ketones Urine Occult Blood Urine Nitrate Ur Leukocyte Esterase Urine RBC Urine WBC Urine Bacteria Urine Mucus 02/08/22 02/08/22 02/08/22 05:25 05:25 05:25 RBC 3.89 L Hgb 10.7 L Hct 34.4 L RDW 17.3 H Plt Count 129 L Seg Neutrophils % 88 H Lymphocytes % 6 L Platelet Estimate Decreased A RBC Morphology Abnormal A Poikilocytosis 1+ A Anisocytosis 2+ A Ovalocytes Few A RBC Fragments Few A Potassium 3.1 L Carbon Dioxide 20 L BUN 31 H Glucose 149 H Calcium 7.7 L Albumin 2.6 L Albumin/Globulin Ratio 0.8 L Procalcitonin 1.73 H Urine Protein Urine Ketones Urine Occult Blood Urine Nitrate Ur Leukocyte Esterase Urine RBC Urine WBC Urine Bacteria Urine Mucus 02/07/22 13:25 RBC Hgb Hct RDW Plt Count Seg Neutrophils % Lymphocytes % Platelet Estimate RBC Morphology Poikilocytosis Anisocytosis Ovalocytes RBC Fragments Potassium Carbon Dioxide BUN Glucose Calcium Albumin Albumin/Globulin Ratio Procalcitonin Urine Protein >=300 mg/dl A Urine Ketones Trace A Urine Occult Blood Large A Urine Nitrate Positive A Ur Leukocyte Esterase Large A Urine RBC 61 H Urine WBC > 182 H Urine Bacteria Few A Urine Mucus Few A Meds: Medications Acetaminophen (Acetaminophen 325 Mg Tablet) 650 mg PO Q6HP PRN; Protocol PRN Reason: Per Pain Protocol/Fever > 101 Albuterol/Ipratropium (Ipratropium/Albuterol 3 Ml Ampul.Neb) 3 ml NEB Q4HP PRN PRN Reason: Shortness Of Breath Apixaban (Apixaban 5 Mg Tablet) 5 mg PO BID [facility] Last Admin: 02/10/22 08:02 Dose: 5 mg Documented by: Docusate Sodium (Docusate Sodium 100 Mg Capsule) 100 mg PO BID [facility] Last Admin: 02/10/22 08:02 Dose: Not Given Documented by: Fludrocortisone Acetate (Fludrocortisone 0.1 Mg Tablet) 0.1 mg PO DAILY [facility] Last Admin: 02/10/22 08:02 Dose: 0.1 mg Documented by: Potassium Chloride 40 meq/ (Dextrose) 520 mls @ 130 mls/hr IV UD PRN PRN Reason: Potassium < 3 Magnesium Sulfate (Magnesium Sulfate) 2 gm in 50 mls @ 50 mls/hr IV UD PRN PRN Reason: Magnesium </= 1.6 Piperacillin Sod/Tazobactam (Sod 3.375 gm/ Dextrose) 50 mls @ 100 mls/hr IV Q6H [facility]; Protocol Last Infusion: 02/10/22 06:00 Dose: Infused Documented by: Potassium Chloride 20 meq/ (Dextrose) 260 mls @ 130 mls/hr IV ONCE ONE Stop: 02/10/22 09:24 Last Admin: 02/10/22 08:02 Dose: 130 mls/hr Documented by: Labetalol HCl (Labetalol 5 Mg/Ml Ml) 0 mg IV Q2HP PRN PRN Reason: Hypertension Last Admin: 02/10/22 05:44 Dose: 20 mg Documented by: Metoprolol Tartrate (Metoprolol Tartrate 5 Mg/5 Ml Vial) 5 mg IV Q2HP PRN PRN Reason: Tachyarrhythmias HR>110 Carbidopa-Levodopa- Entacapone 25-100- 200 Mg 1 dose PO QID [facility] Last Admin: 02/10/22 08:03 Dose: 1 dose Documented by: Ondansetron HCl (Ondansetron 4 Mg/2 Ml Vial) 4 mg IV Q4HP PRN PRN Reason: Nausea And Vomiting Pantoprazole Sodium ([facility] 40 Mg Tablet) [facility] Last Admin: 02/10/22 07:03 Dose: 40 mg Documented by: Nirmatrelvir- Ritonavir [Paxlovid (Eua)] 150-100 Mg 1 dose PO BID [facility] Last Admin: 02/10/22 08:04 Dose: 1 dose Documented by: Vitamin K2 45 Mcg (Capsule) 1 dose PO QDAY [facility] Last Admin: 02/10/22 08:04 Dose: Not Given Documented by: Mirabegron 25 Mg Tablet Extended Release 24 Hr 1 dose PO QDAY [facility] Last Admin: 02/10/22 08:04 Dose: Not Given Documented by: Polyethylene Glycol (Polyethylene Glycol 3350 17 Gm Packet) 17 gm PO DAILYP PRN PRN Reason: Constipation Potassium Chloride (Potassium Chloride 20 Meq Tablet) 40 meq PO UD PRN PRN Reason: Potssium is 3-3.5 Last Admin: 02/10/22 07:03 Dose: 40 meq Documented by: Potassium Chloride (Potassium Chloride 20 Meq Tablet) 40 meq PO UD PRN PRN Reason: Potassium < 3 Pyridostigmine Braggs (Pyridostigmine 60 Mg Tablet) 30 mg PO TID [facility] Last Admin: 02/10/22 08:03 Dose: 30 mg Documented by: Senna (Sennosides 1 Tablet) 2 tab PO DAILYP PRN PRN Reason: Constipation Sodium Chloride (0.9 % Sodium Chloride 10 Ml Syringe) 10 ml IV Q8 [facility] Last Admin: 02/10/22 05:12 Dose: 10 ml Documented by: A/P Narrative A/P Narrative: A: *R hydronephrosis from obstructing UPJ stone: s/p cystoscopy w/stent (02/07) *Sepsis: 2/2 above. resolved *Bacteremia(Klebsiella pna, ?anerobic gpc GPC) @outside facility: awaiting final report -echo no vegetations *DEBO on likely CKD: 2/2 above, resolved *Encephalopathy, metabolic: 2/2 above, improved *Suprapubic catheter placed January 22 [place]: *incidental Covid (+): asymptomatic, no treatment *Hypokalemia: replace prn *Parkinson disease: *Chronic Afib: on eliquis *GERD: P: -Urology per Dr. Sharma -blood cx from outside facility showing Klebsiella pne pansensitive. Gram stains also reported as GPC anaerobe but nothing yet on identification or if anything even grew. -deescalate to augmentin for total course of 14-days to finish February 21 -monitor for covid symptoms -cont parkinson's meds -cont home mitch, prescribed by his neurologist -pt/ot Time Spent With Patient Time: Total time spent is greater than 50% in coordination of care (as documented) at patient's floor/unit and/or counseling patient: QUALITY VTE Deep Vein Thrombosis/Pulmonary Embolism Present on Admission: No
[2022-02-10] MEDS ORDERED: hydrALAZINE 20 MG/ML VIAL IV PRN (09:53)
--- NOTE | 2022-02-10 09:53 | Internal Med Progress Note ---
SUBJECTIVE Subjective Patient information: Note initiated : 02/10/22 at 9:51 am Service Date, if different from initiated Date: [] Patient: Jerome Trotter a 86 y/o M admitted on 02/07/22 for OBSTRUCTING KIDNEY STONE. Chief Complaint: [] Principal diagnosis: Right renal stone with urosepsis, COVID-19 Interval history: History of present illness: Mr. Trotter is a 86 year old M Presents to [facility] for weakness fever and patient recently had suprapubic catheter placed on January 22. He was also have altered mental status. He is not COVID vaccinated although he was checked in the ED and found to be positive on a screen. Also complained of wet cough for 2 weeks. Patient is a poor historian and most of the history obtained from the chart. He only recalls waking up in the hospital. CXR at outside facility reported as unremarkable except for minimal left effusion Patient was given Zosyn and vancomycin in the ED and 1500 mL of IV fluids. Patient carries a history of atrial fibrillation depression GERD hypertension hypothyroidism obstructive sleep apnea Parkinson's.. He was found to have an obstructing stone on the right felt to be the cause of the likely sepsis. Dr. Sahrma was contacted who accepted the patient. Right hydronephrosis. Leukocytosis of 15 mildly low potassium. BUN 29, and creatinine 1.4. Procalcitonin 0.6. Case discussed with the patient's urologist in [place] said not to change the suprapubic catheter for at least 5 weeks from placement date which would put it at February 28. Patient was incidentally found to have COVID on upon testing the ED but did not have any symptoms. 02/08 No overnight event or new complaints. Nurse received a call that his blood cultures were gram-positive cocci. We will repeat blood cultures and get an echo. Continue Zosyn. says patient does take Florinef and that the neurologist put him on that and that his primary care doctors note is blood pressures run high and that they can be quite labile. 02/09 No overnight events. Patient states he feels little bit better. I was told by nursing that the outside facility stated gram-positive cocci in his blood. We are awaiting that report to confirm. Follow-up blood cultures pending. Mild hypokalemia this morning. Calcitonin improving. 02/10 No overnight event. No new complaints. Mildly low potassium will replete. Renal function stable. blood cx from outside facility showing Klebsiella pne pansensitive. Gram stains also reported as GPC anaerobe but nothing yet on identification or if anything even grew. currently on vanc/zosyn, deescalate to augmentin for total course of 14 days Review of Systems: denies headache/fever/chills/nausea/vomiting/chest or abdominal p ain/cough/dyspnea/diarrhea. Otherwise see above. Constitutional Vitals: Vital Signs Temp Pulse Resp BP Pulse Ox 97.6 F 71 16 213/100 100 02/10/22 04:01 02/09/22 16:21 02/10/22 08:00 02/10/22 05:55 02/10/22 08:00 Period Temp Pulse Resp BP Sys/Drew Pulse Ox Last 24 Hr 97.6 F-98.2 F 67-72 13-25 144-217/76-107 95-100 Intake and Output 02/09/22 02/10/22 02/10/22 21:59 05:59 13:59 Intake Total 50 470 50 Output Total 1650 Balance 50 -1180 50 Weight 74.162 kg Intake & Output: Intake & Output 02/09/22 02/10/22 02/10/22 21:59 05:59 13:59 Intake Total 50 470 50 Output Total 1650 Balance 50 -1180 50 Weight 74.162 kg Intake: IV 50 50 50 Zosyn 3.375 gm In Dextrose 5% 50 50 50 in Water 50 ml @ 100 mls/hr IV Q6H [facility] Rx#:[id number] Oral 420 Output: Urine Catheter Amount 1650 Other: Urine Appearance Clear Urine Color Light Cherry Exam: General: Awake, No acute Distress, weak Eyes/N/T: EOMI, , Head/Neck: neck supple, CV: RRR, No murmurs, Pulm: Minimal rhonchi, no wheezing Abd: soft, nontender, +BS x4, suprapubic catheter Ext: no clubbing/cyanosis, mild b/l LE edema Neuro: no focal deficits, moves all extremities, Skin: warm/dry OBJ DATA Labs CBC & Chem 7: 02/08/22 05:25 02/10/22 05:08 Labs: Abnormal Lab Results 02/10/22 02/09/22 02/09/22 05:08 05:16 05:16 RBC Hgb Hct RDW Plt Count Seg Neutrophils % Lymphocytes % Platelet Estimate RBC Morphology Poikilocytosis Anisocytosis Ovalocytes RBC Fragments Potassium 3.1 L 3.1 L Carbon Dioxide 21 L BUN 35 H 38 H Glucose 159 H 197 H Calcium 8.0 L 7.8 L Albumin Albumin/Globulin Ratio Procalcitonin 1.20 H Urine Protein Urine Ketones Urine Occult Blood Urine Nitrate Ur Leukocyte Esterase Urine RBC Urine WBC Urine Bacteria Urine Mucus 02/08/22 02/08/22 02/08/22 05:25 05:25 05:25 RBC 3.89 L Hgb 10.7 L Hct 34.4 L RDW 17.3 H Plt Count 129 L Seg Neutrophils % 88 H Lymphocytes % 6 L Platelet Estimate Decreased A RBC Morphology Abnormal A Poikilocytosis 1+ A Anisocytosis 2+ A Ovalocytes Few A RBC Fragments Few A Potassium 3.1 L Carbon Dioxide 20 L BUN 31 H Glucose 149 H Calcium 7.7 L Albumin 2.6 L Albumin/Globulin Ratio 0.8 L Procalcitonin 1.73 H Urine Protein Urine Ketones Urine Occult Blood Urine Nitrate Ur Leukocyte Esterase Urine RBC Urine WBC Urine Bacteria Urine Mucus 02/07/22 13:25 RBC Hgb Hct RDW Plt Count Seg Neutrophils % Lymphocytes % Platelet Estimate RBC Morphology Poikilocytosis Anisocytosis Ovalocytes RBC Fragments Potassium Carbon Dioxide BUN Glucose Calcium Albumin Albumin/Globulin Ratio Procalcitonin Urine Protein >=300 mg/dl A Urine Ketones Trace A Urine Occult Blood Large A Urine Nitrate Positive A Ur Leukocyte Esterase Large A Urine RBC 61 H Urine WBC > 182 H Urine Bacteria Few A Urine Mucus Few A Meds: Medications Acetaminophen (Acetaminophen 325 Mg Tablet) 650 mg PO Q6HP PRN; Protocol PRN Reason: Per Pain Protocol/Fever > 101 Albuterol/Ipratropium (Ipratropium/Albuterol 3 Ml Ampul.Neb) 3 ml NEB Q4HP PRN PRN Reason: Shortness Of Breath Apixaban (Apixaban 5 Mg Tablet) 5 mg PO BID [facility] Last Admin: 02/10/22 08:02 Dose: 5 mg Documented by: Docusate Sodium (Docusate Sodium 100 Mg Capsule) 100 mg PO BID [facility] Last Admin: 02/10/22 08:02 Dose: Not Given Documented by: Fludrocortisone Acetate (Fludrocortisone 0.1 Mg Tablet) 0.1 mg PO DAILY [facility] Last Admin: 02/10/22 08:02 Dose: 0.1 mg Documented by: Potassium Chloride 40 meq/ (Dextrose) 520 mls @ 130 mls/hr IV UD PRN PRN Reason: Potassium < 3 Magnesium Sulfate (Magnesium Sulfate) 2 gm in 50 mls @ 50 mls/hr IV UD PRN PRN Reason: Magnesium </= 1.6 Piperacillin Sod/Tazobactam (Sod 3.375 gm/ Dextrose) 50 mls @ 100 mls/hr IV Q6H [facility]; Protocol Last Infusion: 02/10/22 06:00 Dose: Infused Documented by: Labetalol HCl (Labetalol 5 Mg/Ml Ml) 0 mg IV Q2HP PRN PRN Reason: Hypertension Last Admin: 02/10/22 05:44 Dose: 20 mg Documented by: Metoprolol Tartrate (Metoprolol Tartrate 5 Mg/5 Ml Vial) 5 mg IV Q2HP PRN PRN Reason: Tachyarrhythmias HR>110 Carbidopa-Levodopa- Entacapone 25-100- 200 Mg 1 dose PO QID [facility] Last Admin: 02/10/22 08:03 Dose: 1 dose Documented by: Ondansetron HCl (Ondansetron 4 Mg/2 Ml Vial) 4 mg IV Q4HP PRN PRN Reason: Nausea And Vomiting Pantoprazole Sodium (Pantoprazole 40 Mg Tablet) 40 mg PO QAMAC [facility] Last Admin: 02/10/22 07:03 Dose: 40 mg Documented by: Nirmatrelvir- Ritonavir [Paxlovid (Eua)] 150-100 Mg 1 dose PO BID [facility] Last Admin: 02/10/22 08:04 Dose: 1 dose Documented by: Vitamin K2 45 Mcg (Capsule) 1 dose PO QDAY [facility] Last Admin: 02/10/22 08:04 Dose: Not Given Documented by: Mirabegron 25 Mg Tablet Extended Release 24 Hr 1 dose PO QDAY [facility] Last Admin: 02/10/22 08:04 Dose: Not Given Documented by: Polyethylene Glycol (Polyethylene Glycol 3350 17 Gm Packet) 17 gm PO DAILYP PRN PRN Reason: Constipation Potassium Chloride (Potassium Chloride 20 Meq Tablet) 40 meq PO UD PRN PRN Reason: Potssium is 3-3.5 Last Admin: 02/10/22 07:03 Dose: 40 meq Documented by: Potassium Chloride (Potassium Chloride 20 Meq Tablet) 40 meq PO UD PRN PRN Reason: Potassium < 3 Pyridostigmine Charlo (Pyridostigmine 60 Mg Tablet) 30 mg PO TID [facility] Last Admin: 02/10/22 08:03 Dose: 30 mg Documented by: Senna (Sennosides 1 Tablet) 2 tab PO DAILYP PRN PRN Reason: Constipation Sodium Chloride (0.9 % Sodium Chloride 10 Ml Syringe) 10 ml IV Q8 [facility] Last Admin: 02/10/22 05:12 Dose: 10 ml Documented by: A/P Narrative A/P Narrative: A: *R hydronephrosis from obstructing UPJ stone: s/p cystoscopy w/stent (02/07) *Sepsis: 2/2 above. resolved *Bacteremia(Klebsiella pna, ?anerobic gpc GPC) @outside facility: awaiting final report -echo no vegetations *DEBO on likely CKD: 2/2 above, resolved *Encephalopathy, metabolic: 2/2 above, improved *Suprapubic catheter placed January 22 [place]: *incidental Covid (+): asymptomatic, no treatment *Hypokalemia: replace prn *Parkinson disease: *Chronic Afib: on eliquis *GERD: P: -Urology per Dr. Sharma -blood cx from outside facility showing Klebsiella pne pansensitive. Gram stains also reported as GPC anaerobe but nothing yet on identification or if anything even grew. -deescalate to augmentin for total course of 14-days to finish February 21 -monitor for covid symptoms -cont parkinson's meds -cont home florinef, prescribed by his neurologist -pt/ot -ppx: Eliquis / home ppi Time Spent With Patient Time: Total time spent is greater than 50% in coordination of care (as documented) at patient's floor/unit and/or counseling patient: Total time spent with greater than 50% in coordination of care (as documented) at patient's floor/unit and/or counseling patient:: 25 - 35 minutes QUALITY VTE Deep Vein Thrombosis/Pulmonary Embolism Present on Admission: No
== END 2022-02-10 14:48 | DRG 871 ==
LOC: ICU 12:23
PROVIDERS: ADMIT Internal Medicine; ATTEND Internal Medicine